=== PATIENT | female | born 1945 ===

== ENCOUNTER → 2024-08-26 16:31 | Outpatient (REF) | payer MEDICARE, OTHER, SELFPAY | LOC: PAVMRI 16:31 | PROVIDERS: ATTENDING PHYSICIAN Orthopaedic Surgery; FAMILY PHYSICIAN Internal Medicine | DX: M25.552 Pain in left hip (principal) | CPT/HCPCS: 73721 ==

== ENCOUNTER 2025-01-03 13:52 | Emergency (ER) | payer MEDICARE, OTHER, SELFPAY ==
[2025-01-03 13:54] VITALS: BP 104/51
[2025-01-03 14:26] VITALS: BMI 19.7
--- NOTE | 2025-01-03 15:34 | ED.GENMED ---
History of Present Illness
General
Chief Complaint: Musculo-Skeletal Complaint
Source: patient
Exam Limitations: none
Time Seen by Provider: 01/03/25 14:04
Nursing documentation reviewed up to this point in time: agreed with
History of Present Illness
History of Present Illness:
The patient is a 79-year-old female who reports she was cleaning out a closet and a 3 pound weight fell onto her left foot. Patient reports that she is able to walk but it is very painful. She denies any other injuries. She did not fall down to
the ground. She has bruising and swelling along the outer top aspect of her left foot. She denies weakness and numbness of her left leg and foot. She is not on blood thinners.
Past History
Past History
ED Past Medical History: Hypercholesterolemia and Other (Chronic kidney disease)
ED Past Surgical History: Cholecystectomy and Orthopedic
Social History
Tobacco: Non-smoker
Alcohol: Other
Drug: None
Personal:
Living: with family
Employment: Other
Family History
Family History: Other
Review of Systems
Review of Systems
Allergies reviewed?: Yes
All Other Systems: ROS reviewed and negative except as documented in HPI and ROS
Constitutional: Reports no symptoms
EENT: Reports no symptoms
Respiratory: Reports no symptoms
Cardiac: Reports no symptoms
ABD/GI: Reports no symptoms
: Reports no symptoms
Musculoskeletal: Reports other
Skin: Reports no symptoms
Neurological: Reports no symptoms
Endocrine: Reports no symptoms
Hematologic/Lymphatic: Reports no symptoms
Psychiatric: Reports no symptoms
Phy Exam
Physical Exam
Physical Exam:
Physical Exam
General: no apparent distress, not acutely ill
Neck: supple.
Heart: s1/s2 regular rate and rhythm, no murmur. Strong pulses in left foot
Lungs: no acute respiratory distress. clear bilaterally
Abdomen: Soft, nontender
Neuro: alert and oriented. no focal neurological deficits. 5 out of 5 strength in lower extremities
Skin: no rash
Psychiatric: well kept. interactive and cooperative
Extremities: Ecchymotic and swollen area to the top of left foot, just proximal to fourth toe of left foot
Course
Orders/Labs/Results
Orders:
Orders
01/03/25 13:53
CR Foot - Left Min 3 Views Urgent
Comment:
Reason For Exam: injury, pain
01/03/25 15:46
Cast Shoe Left-Treatment ONCE
01/03/25 15:[address] Non Medication Order As Directed
Physician Order: Tyree wrap left foot and then apply Shoe
Vital Signs
Initial and Last Documented VS:
Initial Vital Signs
Temp Pulse Resp BP Pulse Ox
97.7 F 81 16 104/51 98
01/03/25 13:54 01/03/25 13:54 01/03/25 13:54 01/03/25 13:54 01/03/25 13:54
Last Documented Vital Signs
Temp Pulse Resp BP Pulse Ox
97.7 F 81 16 104/51 98
01/03/25 13:54 01/03/25 13:54 01/03/25 13:54 01/03/25 13:54 01/03/25 13:54
MDM/Problems Addressed
Differential Diagnosis Includes:
L foot contusion, L foot fracture
MDM/Problems Addressed:
Pt presents with acute left foot pain
*Radiology
Radiology exam reviewed: preliminary read by ED provider (Left foot x-ray reviewed by me. Fourth metatarsal fracture seen) and radiology read reviewed
*Pulse Oximetry
Patient hypoxic: no
*EKG
Interpreted by ED Provider?: NA
*Linux Developer Interpretation
Rate: Linux Developer- N/A
*Critical Care Note
Total Time (30-74mins, 75-104mins- exclusive of procedures): Not Applicable
Data Reviewed
Source: patient and spouse
Patient Management
Discussion with other providers: Other (Case discussed with clearing distribution clerk Vika Brown who agrees that we could place patient in Tyree wrap and shoe and she will follow as an outpatient)
ED Attending Note
-
Portions of this chart may have been created with voice recognition software.� Occasional wrong word or��sound alike� substitutions may have occurred due to the inherent limitations of voice recognition software.
Discharge Plan
Departure
Patient Disposition: Home (Routine Discharge)
Date of Disposition: 01/03/25
Time of Disposition: 15:45
Patient with high blood pressure during this ER visit?: No
Condition: Good
Covid-19: Not Applicable
Discharge Problem:
Fracture of left foot
Instructions: Foot Fracture ED
Referrals:
Shari Causey MD [Family Provider] -
Vika Brown DPM [Specified Professional Personl] - (Call tomorrow to schedule an appointment within 1 week.)
Activity Restrictions/Additional Instructions:
Keep your left foot in an Tyree wrap and orthopedic shoe while getting up and walking. You can take it off to shower/bathe.
Please call podiatry office tomorrow to see as soon as possible. They are expecting your phone call.
Interventions
Interventions:
*Risk Screen - Suicide Last Done: 01/03/25 13:54
*General Assessment Last Done: 01/03/25 14:26
*Neglect/Abuse Screening Last Done: 01/03/25 13:54
*ED- Fall Risk Assessment Last Done: 01/03/25 14:26
*ED COVID-19 Vaccine History Last Done: 01/03/25 14:26
ED-Musculoskeletal Assessment Last Done: 01/03/25 14:26
Discharge Date and Time
Print Language: ANGOLAN
== END 2025-01-03 16:18 | disposition home or self-care (01) ==
LOC: EMR 13:52
PROVIDERS: EMERGENCY PHYSICIAN Emergency Medicine; FAMILY PHYSICIAN Internal Medicine
DX: S92.902A Unspecified fracture of left foot, initial encounter for closed fracture (principal); S90.32XA Contusion of left foot, initial encounter; W20.8XXA Other cause of strike by thrown, projected or falling object, initial encounter; E78.00 Pure hypercholesterolemia, unspecified; N18.9 Chronic kidney disease, unspecified; Z90.49 Acquired absence of other specified parts of digestive tract
CPT/HCPCS: 99283; 73630